=== PATIENT | male | born 1995 | race Caucasian/White ===

== ENCOUNTER 2019-05-20 08:22 | Emergency (ER) | payer OTHER ==
[2019-05-20 08:30] VITALS: BP 137/85; PULSE 89; RESP 18; TEMP 98.4
--- NOTE | 2019-05-20 08:44 | ED ---
General Adult HPI - General Chief complaint: Upper Respiratory Infection Stated complaint: Cough/sore throat Time Seen by Provider: 05/20/19 08:26 Source: patient, RN notes reviewed Mode of arrival: ambulatory Limitations: no limitations - History of Present Illness Initial comments: 24-year-old male presents to the emergency determine for chief complaint of cough. Patient has had a cough and rhinorrhea for about one week. States that he had one episode of vomiting today at work so that he needed to be evaluated. Patient denies abdominal pain. Denies fevers or chills. Denies any recent domestic or foreign travel. Denies shortness of breath or chest pain. States that he needs to note to return to work. Patient has no other complaints at t his time including shortness of breath, chest pain, abdominal pain, nausea or vomiting, headache, or visual changes. - Related Data Allergies Allergy/AdvReac Type Severity Reaction Status Date / Time No Known Allergies Allergy Verified 05/20/19 08:26 Review of Systems ROS Statement: Those systems with pertinent positive or pertinent negative responses have been documented in the HPI. ROS Other: All systems not noted in ROS Statement are negative. Past Medical History Past Medical History: No Reported History History of Any Multi-Drug Resistant Organisms: None Reported Past Surgical History: No Surgical Hx Reported Past Psychological History: No Psychological Hx Reported Smoking Status: Current every day smoker Past Alcohol Use History: Occasional Past Drug Use History: Marijuana General Exam Limitations: no limitations General appearance: alert, in no apparent distress Head exam: Present: atraumatic, normocephalic, normal inspection Eye exam: Present: normal appearance, PERRL, EOMI. Absent: scleral icterus, conjunctival injection, periorbital swelling ENT exam: Present: normal exam, normal oropharynx, mucous membranes moist, TM's normal bilaterally, normal external ear exam Neck exam: Present: normal inspection, full ROM. Absent: tenderness, meningismus, lymphadenopathy Respiratory exam: Present: normal lung sounds bilaterally. Absent: respiratory distress, wheezes, rales, rhonchi, stridor Cardiovascular Exam: Present: regular rate, normal rhythm, normal heart sounds. Absent: systolic murmur, diastolic murmur, rubs, gallop, clicks Course Vital Signs 05/20/19 08:27 Temperature 98.4 F Pulse Rate 89 Respiratory 18 Rate Blood Pressure 137/85 O2 Sat by Pulse 97 Oximetry Medical Decision Making - Medical Decision Making Vitals are stable. Patient is well-appearing. Chest x-ray shows no suspicious acute pulmonary process. Influenza B is positive. Patient has had symptoms for about one week and they are improving. Patient will follow-up with primary care in return for any worsening symptoms. - Lab Data Lab Results 05/20/19 Range/Units 08:45 Influenza Type A RNA Not Detected (Not Detectd) Influenza Type B (PCR) Detected H (Not Detectd) Disposition Clinical Impression: Influenza B Disposition: HOME SELF-CARE Condition: Good Instructions (If sedation given, give patient instructions): Influenza (ED) Additional Instructions: Please follow up with primary care in 1-2 days. Take Motrin and Tylenol for any fevers. Return for any worsening symptoms. Is patient prescribed a controlled substance at d/c from ED?: No Referrals: Noble Gates MD [REFERRING] - 1-2 days Time of Disposition: 09:27
--- NOTE | 2019-05-20 08:51 | XR ---
EXAMINATION TYPE: XR chest 2V DATE OF EXAM: 05/20/2019 COMPARISON: NONE HISTORY: Cough and congestion. TECHNIQUE: Frontal and lateral views of the chest are obtained. FINDINGS: There is no focal air space opacity, pleural effusion, or pneumothorax seen. The cardiac silhouette size is within normal limits. The osseous structures are intact. IMPRESSION: No suspicious acute pulmonary process.
== END 2019-05-20 09:45 | disposition home or self-care (01) ==
LOC: EC 08:22
DX: J10.1 Influenza due to other identified influenza virus with other respiratory manifestations (principal); F17.200 Nicotine dependence, unspecified, uncomplicated; R11.10 Vomiting, unspecified
CPT/HCPCS: 71046; 87502; 99283

== ENCOUNTER 2020-08-24 12:00 | Emergency (ER) | payer OTHER ==
[2020-08-24 12:12] VITALS: BP 132/84; PULSE 72; RESP 20; TEMP 97.9
[2020-08-24] MEDS ORDERED: ACET/COD 300 MG/30 MG STARTER PACK 6 TAB BTL PO STA (13:40)
[2020-08-24] MEDS ORDERED: KETOROLAC 15 MG/ML 1 ML VIAL IM STA (13:40)
--- NOTE | 2020-08-24 13:45 | ED ---
General Adult HPI - General Chief complaint: Abdominal Pain Stated complaint: back pain Time Seen by Provider: 08/24/20 13:26 Source: patient Mode of arrival: ambulatory Limitations: no limitations - History of Present Illness Initial comments: Patient is a 25-year-old male presenting to the emergency Department with complaints of right sided back pain that started yesterday when he was working on cars. Patient states he was doing a lot of twisting underneath a car and felt tightness in his right mid to lower back. He states when he woke up this m orning the tightness is persisting, he feels a little bit worse and feels like it's wrapping around to his right side. States pain with deep inhalation, pain with twisting and full extension of his trunk. He denies any abdominal pain, no fevers or chills, no difficulty with urination. Denies history of kidney stones. He states he has been trying ibuprofen yesterday and today without improvement in his pain. He denies history of any back surgeries or back injuries. He has no further complaints at this time. - Related Data Previous Rx's Medication Instructions Recorded Cyclobenzaprine [Flexeril] 5 mg PO BID #10 tablet 08/24/20 Allergies Allergy/AdvReac Type Severity Reaction Status Date / Time No Known Allergies Allergy Verified 08/24/20 12:12 Review of Systems ROS Statement: Those systems with pertinent positive or pertinent negative responses have been documented in the HPI. ROS Other: All systems not noted in ROS Statement are negative. Past Medical History Past Medical History: No Reported History History of Any Multi-Drug Resistant Organisms: None Reported Past Surgical History: No Surgical Hx Reported Past Psychological History: No Psychological Hx Reported Smoking Status: Current every day smoker Past Alcohol Use History: Occasional Past Drug Use History: Marijuana General Exam - General Exam Comments Initial Comments: GENERAL: Patient is well-developed and well-nourished. Patient is nontoxic and in no acute distress. HEAD: Atraumatic, normocephalic. EYES: Pupils equal round and reactive to light, extraocular movements intact, sclera anicteric, conjunctiva are normal. Eyelids were unremarkable. ENT: Nares patent, oropharynx clear without exudates. Moist mucous membranes. NECK: Normal range of motion, supple without lymphadenopathy or JVD. LUNGS: Unlabored respirations. Breath sounds clear to auscultation bilaterally and equal. No wheezes rales or rhonchi. HEART: Regular rate and rhythm without murmurs, rubs or gallops. ABDOMEN: Soft, nontender, normoactive bowel sounds. No guarding, no rebound. No masses appreciated. : Deferred MUSCULOSKELETAL: Normal extremities with adequate strength and normal range of motion, no pitting or edema. No clubbing or cyanosis. Pain with palpation of the right thoracic paraspinals, pain with deep elevation. NEUROLOGICAL: Patient is alert and oriented x 3. Motor and sensory are also intact. Cranial nerves II through XII grossly intact. Symmetrical smile. Normal speech, normal gait. PSYCH: Normal mood, normal affect. SKIN: Warm, Dry, normal turgor, no rashes or lesions noted. Limitations: no limitations Course Vital Signs 08/24/20 12:08 Temperature 97.9 F Pulse Rate 72 Respiratory 20 Rate Blood Pressure 132/84 O2 Sat by Pulse 100 Oximetry Medical Decision Making - Medical Decision Making Patient is a 25-year-old male here for thoracic right back pain after twisting yesterday. His exam is consistent with muscle skeletal injury, muscle spasms. No acute neuro deficits. Patient will be given Toradol, Tylenol 3 starter pack here in the ER and sent home with a prescription for a muscle relaxer. I also recommend continuing with ibuprofen at home, heat to the area and gentle stretching. He can follow-up with his primary care physician. He is in agreement this plan of care and is stable for discharge. Disposition Clinical Impression: Spasm of thoracic back muscle Disposition: HOME SELF-CARE Condition: Stable Instructions (If sedation given, give patient instructions): Acute Low Back Pain (ED) Additional Instructions: Please return to the Emergency Department if symptoms worsen or any other concerns. Continue to take ibuprofen for discomfort, may take Tylenol threes for more severe pain. Continue with heat to the area and stretching. Follow-up with PCP. Prescriptions: Cyclobenzaprine [Flexeril] 5 mg PO BID #10 tablet Is patient prescribed a controlled substance at d/c from ED?: No Referrals: None,Stated [Primary Care Provider] - 1-2 days Time of Disposition: 13:45
== END 2020-08-24 14:05 | disposition home or self-care (01) ==
LOC: EC 12:00
DX: M62.830 Muscle spasm of back (principal); F17.200 Nicotine dependence, unspecified, uncomplicated; F12.90 Cannabis use, unspecified, uncomplicated
CPT/HCPCS: 96372; 99283

== ENCOUNTER 2020-12-18 21:29 | Emergency (ER) | payer OTHER ==
[2020-12-18 21:46] VITALS: BP 120/71; PULSE 78; RESP 18; TEMP 98.4
[2020-12-18] MEDS ORDERED: ACET/COD 300 MG/30 MG STARTER PACK 6 TAB BTL PO STA (22:53)
[2020-12-18] MEDS ORDERED: PENICILLIN VK 500MG STARTER 4 TAB BTL PO STA (22:53)
--- NOTE | 2020-12-18 22:57 | ED ---
General Adult HPI - General Chief complaint: Dental/Oral Stated complaint: Dental Pain Time Seen by Provider: 12/18/20 22:13 Source: patient, RN notes reviewed Mode of arrival: ambulatory Limitations: no limitations - History of Present Illness Initial comments: 25-year-old male presents to the emergency room for a chief of left-sided dental pain. Patient states he's had a chipped tooth for months. States he sometimes gets infections in this. States he did call a dentist to make an appointment but they told him it would be months so he has never made one. Patient denies any swelling of the lips tongue or throat. Denies any sublingual edema. Patient did try Motrin for pain.Patient has no other complaints at this time including shortness of breath, chest pain, abdominal pain, nausea or vomiting, headache, or visual changes. - Related Data Previous Rx's Medication Instructions Recorded Cyclobenzaprine [Flexeril] 5 mg PO BID #10 tablet 08/24/20 Ibuprofen [Motrin] 600 mg PO Q8HR PRN #20 tab 12/18/20 Penicillin V Potassium [Pen Vee K] 500 mg PO Q6H 10 Days #40 tablet 12/18/20 Allergies Allergy/AdvReac Type Severity Reaction Status Date / Time No Known Allergies Allergy Verified 12/18/20 21:45 Review of Systems ROS Statement: Those systems with pertinent positive or pertinent negative responses have been documented in the HPI. ROS Other: All systems not noted in ROS Statement are negative. Past Medical History Past Medical History: No Reported History History of Any Multi-Drug Resistant Organisms: None Reported Past Surgical History: No Surgical Hx Reported Past Psychological History: No Psychological Hx Reported Smoking Status: Current every day smoker Past Alcohol Use History: Occasional Past Drug Use History: Marijuana General Exam Limitations: no limitations General appearance: alert, in no apparent distress Head exam: Present: atraumatic Eye exam: Present: normal appearance, PERRL, EOMI. Absent: scleral icterus, conjunctival injection ENT exam: Absent: normal oropharynx (Fractured tooth 16. No sublingual edema. No abscess along the gumline.) Expanded Teeth exam: Present: fractured tooth # (16) Course Vital Signs 12/18/20 21:45 Temperature 98.4 F Pulse Rate 78 Respiratory 18 Rate Blood Pressure 120/71 O2 Sat by Pulse 100 Oximetry Medical Decision Making - Medical Decision Making Vitals are stable. No external signs of edema. No sublingual edema. No abscess. He does have a fractured tooth 16. Given sudden onset pain we will start patient on antibiotics. I did recommend he call and make early spring with his dentist. Even if it is months out he does need this evaluated. Patient is agreeable to this. He will return for any worsening symptoms. Disposition Clinical Impression: Pain, dental, Fractured tooth Disposition: HOME SELF-CARE Condition: Good Instructions (If sedation given, give patient instructions): Toothache (ED) Additional Instructions: Please take medications as directed. Do not drive while taking Tylenol 3. Follow-up with dentist at next available appointment. Return for any worsening symptoms. [facility] [place] [id number] [facility] [id number] (existing clients only) New clients: [phone] 1st consult: $50 (includes XRs) Usually 30% less than private dentist for visits after. [employer] [facility] [employer] Have to pay $50 for Xrays and rest is covered [phone] Prescriptions: Ibuprofen [Motrin] 600 mg PO Q8HR PRN #20 tab PRN Reason: Pain Penicillin V Potassium [Pen Vee K] 500 mg PO Q6H 10 Days #40 tablet Is patient prescribed a controlled substance at d/c from ED?: No Referrals: Noble Gates MD [REFERRING] - 1-2 days Time of Disposition: 22:56
== END 2020-12-18 23:31 | disposition home or self-care (01) ==
LOC: EC 21:29
DX: S02.5XXA Fracture of tooth (traumatic), initial encounter for closed fracture (principal); F17.200 Nicotine dependence, unspecified, uncomplicated; F12.90 Cannabis use, unspecified, uncomplicated; X58.XXXA Exposure to other specified factors, initial encounter
CPT/HCPCS: 99282

== ENCOUNTER → 2021-02-23 | Outpatient (CLI) | payer OTHER | END | disposition home or self-care (01) | LOC: LABWHC1 22:19 | PROVIDERS: ATTEND Emergency Medicine | DX: Z53.9 Procedure and treatment not carried out, unspecified reason (principal) ==

== ENCOUNTER → 2021-02-24 | Outpatient (CLI) | payer OTHER | END | disposition home or self-care (01) | LOC: LABWHC1 22:38 | PROVIDERS: ATTEND Emergency Medicine | DX: Z20.822 Contact with and (suspected) exposure to COVID-19 (principal) | CPT/HCPCS: 87635 ==

== ENCOUNTER → 2021-03-09 | Outpatient (CLI) | payer OTHER | END | disposition home or self-care (01) | LOC: LABWHC1 23:28 | PROVIDERS: ATTEND Emergency Medicine | DX: Z20.822 Contact with and (suspected) exposure to COVID-19 (principal) | CPT/HCPCS: 87635 ==

== ENCOUNTER → 2021-03-25 | Outpatient (CLI) | payer OTHER | END | disposition home or self-care (01) | LOC: LABWHC1 13:59 | PROVIDERS: ATTEND Emergency Medicine | DX: Z20.822 Contact with and (suspected) exposure to COVID-19 (principal) | CPT/HCPCS: 87635 ==

== ENCOUNTER → 2021-03-26 | Outpatient (CLI) | payer OTHER | END | disposition home or self-care (01) | LOC: LABWHC1 19:56 | PROVIDERS: ATTEND Emergency Medicine | DX: U07.1 COVID-19 (principal) | CPT/HCPCS: 87635 ==

== ENCOUNTER 2021-04-13 20:17 | Emergency (ER) | payer OTHER ==
[2021-04-13 20:47] VITALS: TEMP 98.6
[2021-04-13 22:54] LABS: Basophils % (A) 1 %; Eosinophils # (A) 0.2 k/uL (0-0.7); Eosinophils % (A) 2 %; HCT 51.2 % (39.0-53.0); HGB 17.3 gm/dL (13.0-17.5); Lymphocytes # (A) 1.7 k/uL (1.0-4.8); Lymphocytes % (A) 24 %; MCH 29.9 pg (25.0-35.0); MCHC 33.8 g/dL (31.0-37.0); MCV 88.5 fL (80.0-100.0); Mean Platelet Volume 8.4; Monocytes # (A) 0.5 k/uL (0-1.0); Monocytes % (A) 7 %; Neutrophils # (A) 4.4 k/uL (1.3-7.7); Neutrophils % (A) 63 %; Platelet Count 153 k/uL (150-450); RBC 5.78 m/uL (4.30-5.90); RDW 13.1 % (11.5-15.5)
[2021-04-13 23:09] LABS: ALT 58 U/L (4-49); AST 55 U/L (17-59); African American GFR (CKD) >90 (>60 ml/min/1.73 sqM); Albumin 4.6 g/dL (3.5-5.0); Alkaline Phosphatase 46 U/L (38-126); Amylase 51 U/L (30-110); Anion Gap 10 mmol/L; Blood Urea Nitrogen 11 mg/dL (9-20); Calcium 9.3 mg/dL (8.4-10.2); Carbon Dioxide 28 mmol/L (22-30); Chloride 104 mmol/L (98-107); Glucose 75 mg/dL (74-99); Lipase 63 U/L (23-300); Non-African American GFR(CKD) >90 (>60 ml/min/1.73 sqM); Potassium 4.2 mmol/L (3.5-5.1); Sodium 142 mmol/L (137-145); Total Bilirubin 1.3 mg/dL (0.2-1.3); Total Protein 7.8 g/dL (6.3-8.2)
[2021-04-13] MEDS ORDERED: SODIUM CHLORIDE 0.9% 1,000 ML IV ONE (23:53)
[2021-04-13] MEDS ORDERED: DICYCLOMINE 10 MG/ML 2 ML AMP IM STA (23:53)
[2021-04-14 01:36] LABS: Appearance,Urine Clear (Clear); Bilirubin,Urine Negative (Negative); Blood,Urine Negative (Negative); Color,Urine Yellow; Glucose,Urine (UA) Negative (Negative); Ketones,Urine Negative (Negative); Leukocyte Esterase,Urine Negative (Negative); Nitrite,Urine Negative (Negative); PH, Urine 5.5 (5.0-8.0); Protein,Urine Trace (Negative); Specific Gravity,Urine 1.027 (1.001-1.035)
--- NOTE | 2021-04-14 01:37 | ED ---
Abdominal Pain HPI - General Chief Complaint: Abdominal Pain Stated Complaint: Abd pain,Diarrhea Time Seen by Provider: 04/13/21 23:25 Source: patient Mode of arrival: ambulatory - History of Present Illness Initial Comments: 26 year-old male patient presents to the emergency department for evaluation of abdominal pain and diarrhea. Patient states symptoms started about 4 days ago. Yesterday he developed pain to the abdomen. Denies black or bloody stool. Denies history of symptoms similar to this. Denies fever but states he has had sweating episodes. Reports 2 episodes of vomiting today. Was diagnosed with COVID on 03/19/21. Has been taking Pepto-Bismol and antidiarrheals without relief. Patient denies any recent rash, cough, shortness of breath, chest pain, back pain, numbness, tingling, dizziness, weakness, hematuria, dysuria, urinary urgency, urinary frequency, headache, visual changes, or any other complaints. - Related Data Previous Rx's Medication Instructions Recorded Cyclobenzaprine [Flexeril] 5 mg PO BID #10 tablet 08/24/20 Ibuprofen [Motrin] 600 mg PO Q8HR PRN #20 tab 12/18/20 Penicillin V Potassium [Pen Vee K] 500 mg PO Q6H 10 Days #40 tablet 12/18/20 Dicyclomine [Bentyl] 20 mg PO QID #12 tablet 04/14/21 Allergies Allergy/AdvReac Type Severity Reaction Status Date / Time No Known Allergies Allergy Verified 04/13/21 20:47 Review of Systems ROS Statement: Those systems with pertinent positive or pertinent negative responses have been documented in the HPI. ROS Other: All systems not noted in ROS Statement are negative. Past Medical History Past Medical History: No Reported History History of Any Multi-Drug Resistant Organisms: None Reported Past Surgical History: No Surgical Hx Reported Past Psychological History: No Psychological Hx Reported Smoking Status: Current every day smoker Past Alcohol Use History: Occasional Past Drug Use History: Marijuana General Exam General appearance: alert, in no apparent distress, other (This is a well-developed, well-nourished adult male in no acute distress.) Respiratory exam: Present: normal lung sounds bilaterally. Absent: respiratory distress, wheezes, rales, rhonchi, stridor Cardiovascular Exam: Present: regular rate, normal rhythm, normal heart sounds. Absent: systolic murmur, diastolic murmur, rubs, gallop, clicks GI/Abdominal exam: Present: soft, normal bowel sounds. Absent: distended, tenderness, guarding, rebound, rigid Neurological exam: Present: alert, oriented X3, CN II-XII intact Psychiatric exam: Present: normal affect, normal mood Skin exam: Present: warm, dry, intact, normal color. Absent: rash Course Vital Signs 04/13/21 20:44 Temperature 98.6 F Pulse Rate 79 Respiratory 19 Rate Blood Pressure 145/97 O2 Sat by Pulse 98 Oximetry Medical Decision Making - Medical Decision Making 26-year-old male patient presented to the emergency department for evaluation of abdominal cramping and diarrhea for the last 4 days. Physical examination did reveal generalized abdominal tenderness. He is afebrile normal vital signs. Labs reviewed and revealed normal white blood cell count. Urinalysis negative. He is given a dose of Bentyl here in the department. Upon reevaluation is resting comfortably in bed states his symptoms are improved. He will be discharged to follow-up with his primary care physician for recheck in 1-2 days. Return parameters were discussed in detail. He verbalizes understanding and agrees with this plan. My attending is Dr. Preaza. - Lab Data Result diagrams: 04/13/21 22:39 04/13/21 22:39 Lab Results 04/13/21 04/13/21 04/14/21 Range/Units 22:39 22:39 01:07 WBC 7.0 (3.8-10.6) k/uL RBC 5.78 (4.30-5.90) m/uL Hgb 17.3 (13.0-17.5) gm/dL Hct 51.2 (39.0-53.0) % MCV 88.5 (80.0-100.0) fL MCH 29.9 (25.0-35.0) pg MCHC 33.8 (31.0-37.0) g/dL RDW 13.1 (11.5-15.5) % Plt Count 153 (150-450) k/uL MPV 8.4 Neutrophils % 63 % Lymphocytes % 24 % Monocytes % 7 % Eosinophils % 2 % Basophils % 1 % Neutrophils # 4.4 (1.3-7.7) k/uL Lymphocytes # 1.7 (1.0-4.8) k/uL Monocytes # 0.5 (0-1.0) k/uL Eosinophils # 0.2 (0-0.7) k/uL Basophils # 0.0 (0-0.2) k/uL Sodium 142 (137-145) mmol/L Potassium 4.2 (3.5-5.1) mmol/L Chloride 104 (98-107) mmol/L Carbon Dioxide 28 (22-30) mmol/L Anion Gap 10 mmol/L BUN 11 (9-20) mg/dL Creatinine 0.98 (0.66-1.25) mg/dL Est GFR (CKD-EPI)AfAm >90 (>60 ml/min/1.73 sqM) Est GFR (CKD-EPI)NonAf >90 (>60 ml/min/1.73 sqM) Glucose 75 (74-99) mg/dL Calcium 9.3 (8.4-10.2) mg/dL Total Bilirubin 1.3 (0.2-1.3) mg/dL AST 55 (17-59) U/L ALT 58 H (4-49) U/L Alkaline Phosphatase 46 (38-126) U/L Total Protein 7.8 (6.3-8.2) g/dL Albumin 4.6 (3.5-5.0) g/dL Amylase 51 (30-110) U/L Lipase 63 (23-300) U/L Urine Color Yellow Urine Appearance Clear (Clear) Urine pH 5.5 (5.0-8.0) Ur Specific Taylor 1.027 (1.001-1.035) Urine Protein Trace H (Negative) Urine Glucose (UA) Negative (Negative) Urine Ketones Negative (Negative) Urine Blood Negative (Negative) Urine Nitrite Negative (Negative) Urine Bilirubin Negative (Negative) Urine Urobilinogen 2.0 (<2.0) mg/dL Ur Leukocyte Esterase Negative (Negative) Disposition Clinical Impression: Abdominal pain, Diarrhea Disposition: HOME SELF-CARE Condition: Good Instructions (If sedation given, give patient instructions): Gastroenteritis (ED), Acute Diarrhea (ED), Abdominal Pain (ED) Additional Instructions: Increase fluids. Take medication as directed. Follow-up through primary care physician for recheck in 1-2 days. Return for any new, worsening, or concerning symptoms. Prescriptions: Dicyclomine [Bentyl] 20 mg PO QID #12 tablet Is patient prescribed a controlled substance at d/c from ED?: No Referrals: None,Stated [Primary Care Provider] - 1-2 days Time of Disposition: 01:58
[2021-04-14 02:50] VITALS: BP 129/83; PULSE 82; RESP 16
== END 2021-04-14 02:49 | disposition home or self-care (01) ==
LOC: EC 20:17
DX: R10.84 Generalized abdominal pain (principal); R19.7 Diarrhea, unspecified; F17.200 Nicotine dependence, unspecified, uncomplicated; F12.90 Cannabis use, unspecified, uncomplicated
CPT/HCPCS: 99284; 96360; 96361; 96372; 36415; 80053; 82150; 83690; 85025; 81003; J0500

== ENCOUNTER 2021-06-29 17:53 | Emergency (ER) | payer OTHER ==
[2021-06-29 18:42] VITALS: TEMP 98.1
[2021-06-29 19:07] LABS: Basophils # (A) 0.1 k/uL (0-0.2); Basophils % (A) 1 %; Eosinophils # (A) 0.2 k/uL (0-0.7); Eosinophils % (A) 1 %; HCT 52.8 % (39.0-53.0); HGB 17.6 gm/dL (13.0-17.5); Lymphocytes # (A) 1.7 k/uL (1.0-4.8); Lymphocytes % (A) 16 %; MCH 29.9 pg (25.0-35.0); MCHC 33.3 g/dL (31.0-37.0); MCV 89.7 fL (80.0-100.0); Mean Platelet Volume 7.5; Monocytes # (A) 0.4 k/uL (0-1.0); Monocytes % (A) 4 %; Neutrophils # (A) 8.4 k/uL (1.3-7.7); Neutrophils % (A) 76 %; Platelet Count 205 k/uL (150-450); RBC 5.88 m/uL (4.30-5.90); RDW 13.1 % (11.5-15.5)
[2021-06-29 19:21] LABS: Partial Thromboplastin Time 24.4 sec (22.0-30.0); Prothrombin Time 10.7 sec (9.0-12.0)
--- NOTE | 2021-06-29 19:23 | XR ---
EXAMINATION: XR chest 2V DATE AND TIME: 06/29/2021 7:17 PM CLINICAL INDICATION: 26 F weakness Additional: Vomiting, chest discomfort TECHNIQUE: PA and lateral views COMPARISON: 05/20/19 FINDINGS: The lungs are clear. The pleural spaces are negative. The cardiac silhouette is not enlarged. The remainder of the mediastinal silhouette is unremarkable. The skeletal structures and soft tissues are negative for acute findings. IMPRESSION: NO ACUTE PROCESS.
[2021-06-29 19:41] LABS: ALT 25 U/L (4-49); AST 30 U/L (17-59); African American GFR (CKD) >90 (>60 ml/min/1.73 sqM); Albumin 4.8 g/dL (3.5-5.0); Alkaline Phosphatase 52 U/L (38-126); Anion Gap 9 mmol/L; Blood Urea Nitrogen 9 mg/dL (9-20); Calcium 9.6 mg/dL (8.4-10.2); Carbon Dioxide 29 mmol/L (22-30); Chloride 101 mmol/L (98-107); Glucose 84 mg/dL (74-99); Non-African American GFR(CKD) >90 (>60 ml/min/1.73 sqM); Potassium 4.6 mmol/L (3.5-5.1); Sodium 139 mmol/L (137-145); Total Bilirubin 1.5 mg/dL (0.2-1.3); Total Protein 8.3 g/dL (6.3-8.2)
[2021-06-29 19:48] LABS: Appearance,Urine Clear (Clear); Bilirubin,Urine Negative (Negative); Blood,Urine Negative (Negative); Color,Urine Yellow; Glucose,Urine (UA) Negative (Negative); Ketones,Urine Negative (Negative); Leukocyte Esterase,Urine Negative (Negative); Nitrite,Urine Negative (Negative); PH, Urine 5.5 (5.0-8.0); Protein,Urine Negative (Negative); Specific Gravity,Urine 1.014 (1.001-1.035); Urobilinogen,Urine <2.0 mg/dL (<2.0)
--- NOTE | 2021-06-29 20:34 | ED ---
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 Patient states that yesterday he started developing nausea, vomiting, cough, and coughing up blood. Patient states is a very small amount. Patient has had no known fever but does have some pain in the left lower quadrant area. Patient a few episodes of diarrhea yesterday and several episodes of vomiting. No hematemesis or coffee-ground emesis. No hematochezia or melena. The patient had COVID-19 in March. No headache, no fever or chills, no changes in vision or hearing, no sore throat or difficulty with speech, no neck pain, no chest pain or shortness of breath, no bowel movements, no numbness or tingling, no extremity pain, no skin rashes or lesions. - Related Data Previous Rx's Medication Instructions Recorded Cyclobenzaprine [Flexeril] 5 mg PO BID #10 tablet 08/24/20 Ibuprofen [Motrin] 600 mg PO Q8HR PRN #20 tab 12/18/20 Penicillin V Potassium [Pen Vee K] 500 mg PO Q6H 10 Days #40 tablet 12/18/20 Dicyclomine [Bentyl] 20 mg PO QID #12 tablet 04/14/21 Dicyclomine [Bentyl] 20 mg PO QID #24 tablet 06/29/21 Famotidine [Pepcid] 20 mg PO BID #30 tablet 06/29/21 Ondansetron [Zofran ODT] 4 mg PO Q8HR #20 tab 06/29/21 Allergies Allergy/AdvReac Type Severity Reaction Status Date / Time No Known Allergies Allergy Verified 06/29/21 18:42 Review of Systems ROS Statement: Those systems with pertinent positive or pertinent negative responses have been documented in the HPI. ROS Other: All systems not noted in ROS Statement are negative. Past Medical History Past Medical History: No Reported History Additional Past Medical History / Comment(s): covid, weaknened heart muscle. History of Any Multi-Drug Resistant Organisms: None Reported Past Surgical History: No Surgical Hx Reported Past Psychological History: No Psychological Hx Reported Smoking Status: Current every day smoker Past Alcohol Use History: Occasional Past Drug Use History: Marijuana General Exam Limitations: no limitations General appearance: alert, in no apparent distress Head exam: Present: atraumatic, normocephalic, normal inspection Eye exam: Present: normal appearance, PERRL, EOMI. Absent: scleral icterus, con junctival injection, periorbital swelling ENT exam: Present: normal exam, normal oropharynx, mucous membranes moist, TM's normal bilaterally, normal external ear exam. Absent: mucous membranes dry Neck exam: Present: normal inspection. Absent: tenderness, meningismus, lymphadenopathy Respiratory exam: Present: normal lung sounds bilaterally. Absent: respiratory distress, wheezes, rales, rhonchi, stridor Cardiovascular Exam: Present: regular rate, normal rhythm, normal heart sounds. Absent: systolic murmur, diastolic murmur, rubs, gallop, clicks GI/Abdominal exam: Present: soft, tenderness (Left lower quadrant), guarding, normal bowel sounds. Absent: distended, rebound, rigid Extremities exam: Present: normal inspection, full ROM, normal capillary refill. Absent: tenderness, pedal edema, joint swelling, calf tenderness Back exam: Present: normal inspection Neurological exam: Present: alert, oriented X3, CN II-XII intact Psychiatric exam: Present: normal affect, normal mood Skin exam: Present: warm, dry, intact, normal color. Absent: rash Course Vital Signs 06/29/21 18:38 Temperature 98.1 F Pulse Rate 60 Respiratory 20 Rate Blood Pressure 133/86 O2 Sat by Pulse 97 Oximetry - Reevaluation(s) Reevaluation #1: 06/29/21 21:57 Medical record is reviewed Patient complains of some cramping abdominal pain. Patient is informed of results and questions answered Patient in no distress Medical Decision Making - Medical Decision Making Patient presents with mixed picture. Patient has symptoms related to viral syndrome to include a cough, fatigue, diarrhea, and nausea and vomiting. However the patient does have left lower quadrant tenderness on exam. This does raise a suspicion of intra-abdominal pathology such as diverticulitis. I'm going to obtain a computed tomography scan. Patient's blood cell count was minimally elevated. Suspect the patient's hemoptysis is related to bronchitis. Patient has no respiratory distress. Patient is perc 0. Patient's workup here most consistent with a viral etiology. Likely viral bronchitis with viral enteritis. Chest x-ray was clear. Computed tomography scan did not show any acute findings. Tested negative for influenza and COVID- 19. All findings discussed with the patient. All questions answered. Patient was told to return to the ER for any signs or symptoms worsen. Told to return immediately if any other problems arise. All questions answered. Treatment plan discussed. Patient in agreement Every effort has been made to ensure accuracy of this dictation. However, due to the limitations of electronic medical records and dictation devices, errors in charting still occur. Supervising physician is Dr. Galdamez - Lab Data Result diagrams: 06/29/21 18:52 06/29/21 18:52 Lab Results 06/29/21 06/29/21 06/29/21 Range/Units 18:52 18:52 18:52 WBC 11.0 H (3.8-10.6) k/uL RBC 5.88 (4.30-5.90) m/uL Hgb 17.6 H (13.0-17.5) gm/dL Hct 52.8 (39.0-53.0) % MCV 89.7 (80.0-100.0) fL MCH 29.9 (25.0-35.0) pg MCHC 33.3 (31.0-37.0) g/dL RDW 13.1 (11.5-15.5) % Plt Count 205 (150-450) k/uL MPV 7.5 Neutrophils % 76 % Lymphocytes % 16 % Monocytes % 4 % Eosinophils % 1 % Basophils % 1 % Neutrophils # 8.4 H (1.3-7.7) k/uL Lymphocytes # 1.7 (1.0-4.8) k/uL Monocytes # 0.4 (0-1.0) k/uL Eosinophils # 0.2 (0-0.7) k/uL Basophils # 0.1 (0-0.2) k/uL PT 10.7 (9.0-12.0) sec INR 1.0 (<1.2) APTT 24.4 (22.0-30.0) sec D-Dimer <0.17 (<0.60) mg/L FEU Sodium 139 (137-145) mmol/L Potassium 4.6 (3.5-5.1) mmol/L Chloride 101 (98-107) mmol/L Carbon Dioxide 29 (22-30) mmol/L Anion Gap 9 mmol/L BUN 9 (9-20) mg/dL Creatinine 0.94 (0.66-1.25) mg/dL Est GFR (CKD-EPI)AfAm >90 (>60 ml/min/1.73 sqM) Est GFR (CKD-EPI)NonAf >90 (>60 ml/min/1.73 sqM) Glucose 84 (74-99) mg/dL Plasma Lactic Acid Jun (0.7-2.0) mmol/L Calcium 9.6 (8.4-10.2) mg/dL Total Bilirubin 1.5 H (0.2-1.3) mg/dL AST 30 (17-59) U/L ALT 25 (4-49) U/L Alkaline Phosphatase 52 (38-126) U/L Troponin I (0.000-0.034) ng/mL Total Protein 8.3 H (6.3-8.2) g/dL Albumin 4.8 (3.5-5.0) g/dL Urine Color Urine Appearance (Clear) Urine pH (5.0-8.0) Ur Specific [place] (1.001-1.035) Urine Protein (Negative) Urine Glucose (UA) (Negative) Urine Ketones (Negative) Urine Blood (Negative) Urine Nitrite (Negative) Urine Bilirubin (Negative) Urine Urobilinogen (<2.0) mg/dL Ur Leukocyte Esterase (Negative) Coronavirus (PCR) (Not Detectd) Influenza Type A RNA (Not Detectd) Influenza Type B (PCR) (Not Detectd) 06/29/21 06/29/21 06/29/21 Range/Units 18:52 18:52 19:41 WBC (3.8-10.6) k/uL RBC (4.30-5.90) m/uL Hgb (13.0-17.5) gm/dL Hct (39.0-53.0) % MCV (80.0-100.0) fL MCH (25.0-35.0) pg MCHC (31.0-37.0) g/dL RDW (11.5-15.5) % Plt Count (150-450) k/uL MPV Neutrophils % % Lymphocytes % % Monocytes % % Eosinophils % % Basophils % % Neutrophils # (1.3-7.7) k/uL Lymphocytes # (1.0-4.8) k/uL Monocytes # (0-1.0) k/uL Eosinophils # (0-0.7) k/uL Basophils # (0-0.2) k/uL PT (9.0-12.0) sec INR (<1.2) APTT (22.0-30.0) sec D-Dimer (<0.60) mg/L FEU Sodium (137-145) mmol/L Potassium (3.5-5.1) mmol/L Chloride (98-107) mmol/L Carbon Dioxide (22-30) mmol/L Anion Gap mmol/L BUN (9-20) mg/dL Creatinine (0.66-1.25) mg/dL Est GFR (CKD-EPI)AfAm (>60 ml/min/1.73 sqM) Est GFR (CKD-EPI)NonAf (>60 ml/min/1.73 sqM) Glucose (74-99) mg/dL Plasma Lactic Acid Jun 0.8 (0.7-2.0) mmol/L Calcium (8.4-10.2) mg/dL Total Bilirubin (0.2-1.3) mg/dL AST (17-59) U/L ALT (4-49) U/L Alkaline Phosphatase (38-126) U/L Troponin I <0.012 (0.000-0.034) ng/mL Total Protein (6.3-8.2) g/dL Albumin (3.5-5.0) g/dL Urine Color Yellow Urine Appearance Clear (Clear) Urine pH 5.5 (5.0-8.0) Ur Specific [place] 1.014 (1.001-1.035) Urine Protein Negative (Negative) Urine Glucose (UA) Negative (Negative) Urine Ketones Negative (Negative) Urine Blood Negative (Negative) Urine Nitrite Negative (Negative) Urine Bilirubin Negative (Negative) Urine Urobilinogen <2.0 (<2.0) mg/dL Ur Leukocyte Esterase Negative (Negative) Coronavirus (PCR) (Not Detectd) Influenza Type A RNA (Not Detectd) Influenza Type B (PCR) (Not Detectd) 06/29/21 06/29/21 Range/Units 20:21 20:21 WBC (3.8-10.6) k/uL RBC (4.30-5.90) m/uL Hgb (13.0-17.5) gm/dL Hct (39.0-53.0) % MCV (80.0-100.0) fL MCH (25.0-35.0) pg MCHC (31.0-37.0) g/dL RDW (11.5-15.5) % Plt Count (150-450) k/uL MPV Neutrophils % % Lymphocytes % % Monocytes % % Eosinophils % % Basophils % % Neutrophils # (1.3-7.7) k/uL Lymphocytes # (1.0-4.8) k/uL Monocytes # (0-1.0) k/uL Eosinophils # (0-0.7) k/uL Basophils # (0-0.2) k/uL PT (9.0-12.0) sec INR (<1.2) APTT (22.0-30.0) sec D-Dimer (<0.60) mg/L FEU Sodium (137-145) mmol/L Potassium (3.5-5.1) mmol/L Chloride (98-107) mmol/L Carbon Dioxide (22-30) mmol/L Anion Gap mmol/L BUN (9-20) mg/dL Creatinine (0.66-1.25) mg/dL Est GFR (CKD-EPI)AfAm (>60 ml/min/1.73 sqM) Est GFR (CKD-EPI)NonAf (>60 ml/min/1.73 sqM) Glucose (74-99) mg/dL Plasma Lactic Acid Jun (0.7-2.0) mmol/L Calcium (8.4-10.2) mg/dL Total Bilirubin (0.2-1.3) mg/dL AST (17-59) U/L ALT (4-49) U/L Alkaline Phosphatase (38-126) U/L Troponin I (0.000-0.034) ng/mL Total Protein (6.3-8.2) g/dL Albumin (3.5-5.0) g/dL Urine Color Urine Appearance (Clear) Urine pH (5.0-8.0) Ur Specific [place] (1.001-1.035) Urine Protein (Negative) Urine Glucose (UA) (Negative) Urine Ketones (Negative) Urine Blood (Negative) Urine Nitrite (Negative) Urine Bilirubin (Negative) Urine Urobilinogen (<2.0) mg/dL Ur Leukocyte Esterase (Negative) Coronavirus (PCR) Not Detected (Not Detectd) Influenza Type A RNA Not Detected (Not Detectd) Influenza Type B (PCR) Not Detected (Not Detectd) Disposition Clinical Impression: Acute bronchitis, viral, Viral enteritis Disposition: HOME SELF-CARE Condition: Good Additional Instructions: Clear liquid diet for 24 hours. Advance diet as tolerated thereafter. Follow-up with your regular physician as directed. Return to the ER immediately if any symptoms worsen, new symptoms arise, or any other problems develop. Prescriptions: Dicyclomine [Bentyl] 20 mg PO QID #24 tablet Famotidine [Pepcid] 20 mg PO BID #30 tablet Ondansetron [Zofran ODT] 4 mg PO Q8HR #20 tab Is patient prescribed a controlled substance at d/c from ED?: No Referrals: Yousuf Aranda [STAFF PHYSICIAN] - 07/04/21 Time of Disposition: 21:58
--- NOTE | 2021-06-29 21:36 | CT ---
EXAMINATION TYPE: CT abdomen pelvis w con DATE OF EXAM: 06/29/2021 COMPARISON: HISTORY: 26 M N/V and cough CT DLP: 1676.5 mGycm, Automated Exposure Control for Dose Reduction was Utilized. CONTRAST: CT scan of the abdomen and pelvis is performed with oral and with IV Contrast, patient injected with 100 mL of Isovue 300. FINDINGS: LUNG BASES: No significant abnormality is appreciated. LIVER/GB: No significant abnormality is appreciated. Cholelithiasis incidentally noted. PANCREAS: No significant abnormality is seen. SPLEEN: No significant abnormality is seen. ADRENALS: No significant abnormality is seen. KIDNEYS: No significant abnormality is seen. BOWEL: No significant abnormality is seen. The appendix is negative. PROSTATE/SEMINAL VESICLES: No gross abnormality seen. LYMPH NODES: No greater than 1cm abdominal or pelvic lymph nodes are appreciated. OSSEOUS STRUCTURES: No significant abnormality is seen. OTHER: No significant additional abnormality is seen. IMPRESSION: No significant acute finding is seen to account for patient's clinical symptoms.
[2021-06-29] MEDS ORDERED: KETOROLAC 15 MG/ML 1 ML VIAL IVP STA (21:56)
[2021-06-29] MEDS ORDERED: ONDANSETRON 4 MG/2 ML VIAL IVP STA (21:56)
[2021-06-29 22:15] VITALS: BP 120/73; PULSE 59; RESP 18
== END 2021-06-29 22:25 | disposition home or self-care (01) ==
LOC: EC 17:53
DX: A08.4 Viral intestinal infection, unspecified (principal); J20.8 Acute bronchitis due to other specified organisms; F17.200 Nicotine dependence, unspecified, uncomplicated; Z20.822 Contact with and (suspected) exposure to COVID-19; Z86.16 Personal history of COVID-19
CPT/HCPCS: 36415; 85379; 80053; 83605; 84484; 85025; 85610; 85730; 81003; 87502; 87635; 71046; 74177; 99285; 96374; 96375; J2405; J1885; Q9967

== ENCOUNTER 2021-08-05 12:02 | Emergency (ER) | payer OTHER ==
[2021-08-05 12:08] VITALS: BP 145/79; PULSE 99; RESP 18; TEMP 98.2
--- NOTE | 2021-08-05 12:40 | ED ---
General Adult HPI - General Chief complaint: Psychiatric Symptoms Stated complaint: EPS eval Time Seen by Provider: 08/05/21 12:10 Source: patient, RN notes reviewed, old records reviewed Mode of arrival: ambulatory Limitations: no limitations - History of Present Illness Initial comments: This is a 26-year-old male who presents emergency Department stating is a 10 year history of depression and anxiety has been yet to be diagnosed. Patient states the last month or so ever since he lost his job he has been having suicidal ideations. Patient has no specific plan per patient has made no attempt patient denies any recent drinking or any drug use at all. Patient denies any physical complaints today. Patient denies any fever chills cough patient denies any chest pain difficult breathing shortness breath. Patient denies any abdominal pain or nausea vomiting diarrhea. - Related Data Previous Rx's Medication Instructions Recorded Cyclobenzaprine [Flexeril] 5 mg PO BID #10 tablet 08/24/20 Ibuprofen [Motrin] 600 mg PO Q8HR PRN #20 tab 12/18/20 Penicillin V Potassium [Pen Vee K] 500 mg PO Q6H 10 Days #40 tablet 12/18/20 Dicyclomine [Bentyl] 20 mg PO QID #12 tablet 04/14/21 Dicyclomine [Bentyl] 20 mg PO QID #24 tablet 06/29/21 Famotidine [Pepcid] 20 mg PO BID #30 tablet 06/29/21 Ondansetron [Zofran ODT] 4 mg PO Q8HR #20 tab 06/29/21 Allergies Allergy/AdvReac Type Severity Reaction Status Date / Time No Known Allergies Allergy Verified 08/05/21 12:05 Review of Systems ROS Statement: Those systems with pertinent positive or pertinent negative responses have been documented in the HPI. ROS Other: All systems not noted in ROS Statement are negative. Past Medical History Past Medical History: No Reported History Additional Past Medical History / Comment(s): covid, weaknened heart muscle. History of Any Multi-Drug Resistant Organisms: None Reported Past Surgical History: No Surgical Hx Reported Past Psychological History: No Psychological Hx Reported Smoking Status: Current every day smoker Past Alcohol Use History: Occasional Past Drug Use History: Marijuana General Exam - General Exam Comments Initial Comments: GENERAL: Patient is well-developed and well-nourished. Patient is nontoxic and well- hydrated and is in no acute distress. ENT: Neck is soft and supple. No significant lymphadenopathy is noted. Oropharynx is clear. Moist mucous membranes. Neck has full range of motion without eliciting any pain. EYES: The sclera were anicteric and conjunctiva were pink and moist. Extraocular movements were intact and pupils were equal round and reactive to light. Eyelids were unremarkable. PULMONARY: Unlabored respirations. Good breath sounds bilaterally. No audible rales rhonchi or wheezing was noted. CARDIOVASCULAR: There is a regular rate and rhythm without any murmurs gallops or rubs. ABDOMEN: Soft and nontender with normal bowel sounds. SKIN: Skin is clear with no lesions or rashes and otherwise unremarkable. NEUROLOGIC: Patient is alert and oriented x3. Cranial nerves II through XII are grossly intact. Motor and sensory are also intact. Normal speech, volume and content. Symmetrical smile. MUSCULOSKELETAL: Normal extremities with adequate strength and full range of motion. LYMPHATICS: No significant lymphadenopathy is noted PSYCHIATRIC: Patient states he is depressed and has had suicidal thoughts. Limitations: no limitations Course Vital Signs 08/05/21 12:05 Temperature 98.2 F Pulse Rate 99 Respiratory 18 Rate Blood Pressure 145/79 O2 Sat by Pulse 99 Oximetry Medical Decision Making - Medical Decision Making EPS evaluated the patient and hooked him up with outpatient follow-up he was in agreement. Patient was in agreement that he is safe until he followed up. Disposition Clinical Impression: Depression, Suicidal ideation Disposition: HOME SELF-CARE Condition: Good Is patient prescribed a controlled substance at d/c from ED?: No Referrals: None,Stated [Primary Care Provider] - 1-2 days Time of Disposition: 14:28
== END 2021-08-05 14:38 | disposition home or self-care (01) ==
LOC: EC 12:02
DX: F32.9 Major depressive disorder, single episode, unspecified (principal); R45.851 Suicidal ideations; F17.200 Nicotine dependence, unspecified, uncomplicated
CPT/HCPCS: 99284

== ENCOUNTER 2021-11-23 23:07 | Emergency (ER) | payer OTHER ==
[2021-11-23 23:48] VITALS: BP 151/87; PULSE 98; RESP 20; TEMP 98.8
--- NOTE | 2021-11-24 00:44 | XR ---
EXAMINATION TYPE: XR chest 2V DATE OF EXAM: 11/24/2021 COMPARISON: 06/29/2021 HISTORY: Difficulty breathing TECHNIQUE: 2 view FINDINGS: Heart and mediastinum are normal. Lungs are clear. Diaphragm is normal. Bony thorax is inta ct. IMPRESSION: Normal chest. No change.
[2021-11-24] MEDS ORDERED: methylPREDNISolone SOD SUCCI 125 MG/2 ML VIAL IM ONE (01:25)
[2021-11-24] MEDS ORDERED: ALBUTEROL HFA INHALER INHALATION STA (01:25)
--- NOTE | 2021-11-24 01:30 | ED ---
General Adult HPI - General Chief complaint: Shortness of Breath Stated complaint: SOB Time Seen by Provider: 11/24/21 00:49 Source: patient Mode of arrival: ambulatory Limitations: no limitations - History of Present Illness Initial comments: Patient is a 26-year-old female presenting with chief complaint of shortness of breath. Patient admits to cough for the last 2-3 days. Patient states he feels like he is working harder to breathe. Patient admits to smoking. Cough is dry. Denies chest pain. Denies fever, chills, nausea, vomiting, abdominal pain, neck pain or stiffness, sore throat, ear pain, sinus pain, hematochezia, melena, dysuria, hematuria, urgency, frequency. - Related Data Previous Rx's Medication Instructions Recorded Cyclobenzaprine [Flexeril] 5 mg PO BID #10 tablet 08/24/20 Ibuprofen [Motrin] 600 mg PO Q8HR PRN #20 tab 12/18/20 Penicillin V Potassium [Pen Vee K] 500 mg PO Q6H 10 Days #40 tablet 12/18/20 Dicyclomine [Bentyl] 20 mg PO QID #12 tablet 04/14/21 Dicyclomine [Bentyl] 20 mg PO QID #24 tablet 06/29/21 Famotidine [Pepcid] 20 mg PO BID #30 tablet 06/29/21 Ondansetron [Zofran ODT] 4 mg PO Q8HR #20 tab 06/29/21 Albuterol Inhaler [Ventolin Hfa 1 - 2 puff INHALATION Q4-6H PRN #1 11/24/21 Inhaler] unit methylPREDNISolone Dose Pack 4 mg PO DIRECTED #1 packet 11/24/21 [Medrol Dose Pack] Allergies Allergy/AdvReac Type Severity Reaction Status Date / Time No Known Allergies Allergy Verified 11/23/21 23:48 Review of Systems ROS Statement: Those systems with pertinent positive or pertinent negative responses have been documented in the HPI. ROS Other: All systems not noted in ROS Statement are negative. Past Medical History Past Medical History: No Reported History Additional Past Medical History / Comment(s): covid, weaknened heart muscle. History of Any Multi-Drug Resistant Organisms: None Reported Past Surgical History: No Surgical Hx Reported Past Psychological History: No Psychological Hx Reported Smoking Status: Current every day smoker Past Alcohol Use History: Occasional Past Drug Use History: Marijuana General Exam Limitations: no limitations General appearance: alert, in no apparent distress Head exam: Present: atraumatic, normocephalic, normal inspection Eye exam: Present: normal appearance, PERRL, EOMI. Absent: scleral icterus, conjunctival injection, periorbital swelling Neck exam: Present: normal inspection Respiratory exam: Present: wheezes. Absent: rales, rhonchi, stridor Cardiovascular Exam: Present: regular rate, normal rhythm, normal heart sounds. Absent: systolic murmur, diastolic murmur, rubs, gallop, clicks Neurological exam: Present: alert, oriented X3, CN II-XII intact Psychiatric exam: Present: normal affect, normal mood Skin exam: Present: warm, dry, intact, normal color. Absent: rash Course Vital Signs 11/23/21 23:45 Temperature 98.8 F Pulse Rate 98 Respiratory 20 Rate Blood Pressure 151/87 O2 Sat by Pulse 97 Oximetry Medical Decision Making - Medical Decision Making Patient is a 26-year-old male presenting with URI-like symptoms. Patient has had a cough and some difficulty breathing for the last 2-3 days. On examination there are diffuse wheezes heard throughout the lung moore. Patient is given steroids and albuterol. Patient is sent home with Medrol Dosepak and prescription for albuterol inhaler. Educated on supportive treatment. Patient is negative for Covid, chest x-ray shows no acute process. Follow-up with PCP. Report back to ER with any new or worsening symptoms. Discussed return parameters and answered all questions. Patient conveyed verbal understanding and agreed to the plan. I discussed this case in detail with my attending Dr. Russell - Lab Data Lab Results 11/23/21 11/23/21 Range/Units 23:52 23:52 Coronavirus (PCR) Not Detected (Not Detectd) Influenza Type A RNA Not Detected (Not Detectd) Influenza Type B (PCR) Not Detected (Not Detectd) Disposition Clinical Impression: Cough, Wheezing Disposition: HOME SELF-CARE Condition: Good Instructions (If sedation given, give patient instructions): Bronchospasm (ED) Additional Instructions: Follow-up with PCP. Report back to ER with any new or worsening symptoms. Take medication as prescribed. Prescriptions: methylPREDNISolone Dose Pack [Medrol Dose Pack] 4 mg PO DIRECTED #1 packet Albuterol Inhaler [Ventolin Hfa Inhaler] 1 - 2 puff INHALATION Q4-6H PRN #1 unit PRN Reason: Shortness Of Breath Is patient prescribed a controlled substance at d/c from ED?: No Referrals: None,Stated [Primary Care Provider] - 1-2 days Time of Disposition: 01:30
== END 2021-11-24 02:01 | disposition home or self-care (01) ==
LOC: EC 23:07
DX: R06.2 Wheezing (principal); R05.9 Cough, unspecified; R06.02 Shortness of breath; F17.200 Nicotine dependence, unspecified, uncomplicated; Z20.822 Contact with and (suspected) exposure to COVID-19
CPT/HCPCS: 99284 ×2; 96372; 94640; 87502; 87635; 71046; J2930

== ENCOUNTER 2021-12-27 08:17 | Emergency (ER) | payer OTHER ==
[2021-12-27] MEDS ORDERED: SODIUM CHLORIDE 0.9% 1,000 ML IV STA (08:36)
[2021-12-27] MEDS ORDERED: ONDANSETRON 4 MG/2 ML VIAL IVP STA (08:36)
[2021-12-27] MEDS ORDERED: PANTOPRAZOLE 40 MG/10 ML VIAL IVP STA (08:36)
[2021-12-27] MEDS ORDERED: MORPHINE SULFATE 4 MG/ML SYRINGE IV STA (08:36)
--- NOTE | 2021-12-27 08:41 | ED ---
General Adult HPI - General Chief complaint: Abdominal Pain Stated complaint: back pain, abd pain Time Seen by Provider: 12/27/21 08:25 Source: patient, RN notes reviewed, old records reviewed Mode of arrival: ambulatory Limitations: no limitations - History of Present Illness Initial comments: Patient is a 26-year-old male with past medical history that is relatively unremarkable who presents emergency Department complaining of abdominal pain, back pain. Abdominal pain has been ongoing for 2 months. States has been more persistent over the last few days. Has interrupted sleep which is why presents for evaluation. Endorses intermittent nausea. Endorses intermittent emesis as well, that is nonbilious and nonbloody. Denies any change in bowel movements. Denies constipation. Denies any fevers or chills. Discussed the pain as a achy, sharp pain in the right upper quadrant of his abdomen. Also has an associated back pain directly behind his abdominal pain. Has no known gallbladder issues but does have family members who recommended to be evaluated for possible gallbladder issue. No known palliative or provocative factors. States it usually comes and goes on its own. Currently has the pain. wanted to be evaluated. Denies any other associated symptoms including chest pain, shortness breath, fevers, chills, cough. No known sick contacts. - Related Data Home Medications Medication Instructions Recorded Confirmed Acetaminophen Tab [Tylenol Tab] 1,000 mg PO Q6H PRN 12/27/21 12/27/21 Albuterol Inhaler [Ventolin Hfa 1 - 2 puff INHALATION RT-Q4H PRN 12/27/21 12/27/21 Inhaler] Dicyclomine [Bentyl] 20 mg PO QID PRN 12/27/21 12/27/21 Previous Rx's Medication Instructions Recorded Famotidine 20 mg PO DAILY #10 tab 12/27/21 Ondansetron Odt [Zofran Odt] 4 mg PO Q8HR PRN 2 Days #6 tab 12/27/21 Allergies Allergy/AdvReac Type Severity Reaction Status Date / Time No Known Allergies Allergy Verified 12/27/21 08:28 Review of Systems ROS Statement: Those systems with pertinent positive or pertinent negative responses have been documented in the HPI. Review of Systems: CONST: Denies fever EYES: Denies blurry vision ENT: Denies nasal congestion C/V: Denies Chest pain RESP: Denies shortness of breath GI: Endorses abdominal pain : Denies dysuria SKIN: Denies rash. MSK: Denies joint pain. NEURO: Denies headache ROS Other: All systems not noted in ROS Statement are negative. Past Medical History Past Medical History: No Reported History Additional Past Medical History / Comment(s): covid, weaknened heart muscle. History of Any Multi-Drug Resistant Organisms: None Reported Past Surgical History: No Surgical Hx Reported Past Psychological History: No Psychological Hx Reported Smoking Status: Current every day smoker Past Alcohol Use History: Occasional Past Drug Use History: Marijuana General Exam - General Exam Comments Initial Comments: General: Appears in no acute distress. HEAD: Normal with no signs of head trauma. EYES: PERRLA, EOMI, conjunctiva normal, no discharge. ENT: Hearing grossly intact, normal oropharynx. RESPIRATORY: Clear breath sounds bilaterally. No wheezes, rales, or rhonchi. C/V: Regular rate and rhythm. S1 and S2 auscultated, no edema, peripheral pulses 2+ and intact throughout ABD: Abdomen soft, nondistended. Tender to palpation in the right upper quadrant, that radiates around the right-sided ribs towards the back. McBurney's point negative. Chung sign negative. No guarding. No peritoneal signs. No rebound tenderness. EXT: Normal range of motion, no obvious deformity. No midline thoracic or lumbar spine tenderness to palpation. SKIN: No rashes or lesions observed on exposed skin. NEURO: Alert and oriented 4. No focal deficits. Limitations: no limitations Course Vital Signs 12/27/21 12/27/21 08:23 11:34 Temperature 96.9 F L 97.7 F Pulse Rate 79 52 L Respiratory 20 18 Rate Blood Pressure 125/80 120/72 O2 Sat by Pulse 99 96 Oximetry Medical Decision Making - Medical Decision Making Based on the patient's presentation and physical exam, I'm concerned for acute intra-abdominal pathology for his current symptoms. Hepatobiliary etiology is highly suspected. We will obtain abdominal laboratory studies as well as right upper quadrant ultrasound and x-ray. He will be symptomatically treated with IV fluids, antiemetics, analgesia. Patient was in agreement this plan. Vital signs within acceptable limits. Laboratory studies are remarkable for normal hepatobiliary function. No signs of infection. The gallbladder ultrasound reveals cholelithiasis without signs of cholecystitis. On reevaluation, patient is feeling improved. We discussed his results. He expresses understanding that he has gallstones but no emergent reason for cholecystectomy at this time. I did recommend following up outpatient with surgery for evaluation for nonemergent cholecystectomy. Strict return precautions were discussed. He was in agreement with this plan. He is tolerating oral intake. He is likely experiencing biliary colic. I will provide the patient with a prescription for famotidine, Zofran ODT. I instructed the patient to follow up with their PCP in the next 1-3 days. I provided contact information for follow up with general surgery. I explained that the patient should return to the emergency department if they experience any worsening symptoms. Strict return precautions were discussed with the patient. The patient expressed understanding of these instructions. I answered all questions that the patient had. The patient was discharged home in good condition with their prescriptions and follow up information. - Lab Data Result diagrams: 12/27/21 08:52 12/27/21 08:52 Lab Results 12/27/21 12/27/21 12/27/21 Range/Units 08:52 08:52 08:52 WBC 9.8 (3.8-10.6) k/uL RBC 5.60 (4.30-5.90) m/uL Hgb 16.6 (13.0-17.5) gm/dL Hct 49.0 (39.0-53.0) % MCV 87.4 (80.0-100.0) fL MCH 29.6 (25.0-35.0) pg MCHC 33.9 (31.0-37.0) g/dL RDW 13.1 (11.5-15.5) % Plt Count 164 (150-450) k/uL MPV 9.2 Neutrophils % 63 % Lymphocytes % 24 % Monocytes % 5 % Eosinophils % 5 % Basophils % 1 % Neutrophils # 6.2 (1.3-7.7) k/uL Lymphocytes # 2.4 (1.0-4.8) k/uL Monocytes # 0.5 (0-1.0) k/uL Eosinophils # 0.5 (0-0.7) k/uL Basophils # 0.1 (0-0.2) k/uL PT 10.4 (9.0-12.0) sec INR 1.0 (<1.2) APTT 24.4 (22.0-30.0) sec Sodium (137-145) mmol/L Potassium (3.5-5.1) mmol/L Chloride (98-107) mmol/L Carbon Dioxide (22-30) mmol/L Anion Gap mmol/L BUN (9-20) mg/dL Creatinine (0.66-1.25) mg/dL Est GFR (CKD-EPI)AfAm (>60 ml/min/1.73 sqM) Est GFR (CKD-EPI)NonAf (>60 ml/min/1.73 sqM) Glucose (74-99) mg/dL Calcium (8.4-10.2) mg/dL Total Bilirubin (0.2-1.3) mg/dL AST (17-59) U/L ALT (4-49) U/L Alkaline Phosphatase (38-126) U/L Total Protein (6.3-8.2) g/dL Albumin (3.5-5.0) g/dL Amylase (30-110) U/L Lipase (23-300) U/L Urine Color Yellow Urine Appearance Clear (Clear) Urine pH 5.5 (5.0-8.0) Ur Specific [place] 1.029 (1.001-1.035) Urine Protein Trace H (Negative) Urine Glucose (UA) Negative (Negative) Urine Ketones Negative (Negative) Urine Blood Negative (Negative) Urine Nitrite Negative (Negative) Urine Bilirubin Negative (Negative) Urine Urobilinogen 2.0 (<2.0) mg/dL Ur Leukocyte Esterase Negative (Negative) 12/27/21 Range/Units 08:52 WBC (3.8-10.6) k/uL RBC (4.30-5.90) m/uL Hgb (13.0-17.5) gm/dL Hct (39.0-53.0) % MCV (80.0-100.0) fL MCH (25.0-35.0) pg MCHC (31.0-37.0) g/dL RDW (11.5-15.5) % Plt Count (150-450) k/uL MPV Neutrophils % % Lymphocytes % % Monocytes % % Eosinophils % % Basophils % % Neutrophils # (1.3-7.7) k/uL Lymphocytes # (1.0-4.8) k/uL Monocytes # (0-1.0) k/uL Eosinophils # (0-0.7) k/uL Basophils # (0-0.2) k/uL PT (9.0-12.0) sec INR (<1.2) APTT (22.0-30.0) sec Sodium 140 (137-145) mmol/L Potassium 4.1 (3.5-5.1) mmol/L Chloride 103 (98-107) mmol/L Carbon Dioxide 27 (22-30) mmol/L Anion Gap 10 mmol/L BUN 15 (9-20) mg/dL Creatinine 0.91 (0.66-1.25) mg/dL Est GFR (CKD-EPI)AfAm >90 (>60 ml/min/1.73 sqM) Est GFR (CKD-EPI)NonAf >90 (>60 ml/min/1.73 sqM) Glucose 91 (74-99) mg/dL Calcium 8.7 (8.4-10.2) mg/dL Total Bilirubin 0.6 (0.2-1.3) mg/dL AST 24 (17-59) U/L ALT 25 (4-49) U/L Alkaline Phosphatase 48 (38-126) U/L Total Protein 6.9 (6.3-8.2) g/dL Albumin 4.3 (3.5-5.0) g/dL Amylase 46 (30-110) U/L Lipase 104 (23-300) U/L Urine Color Urine Appearance (Clear) Urine pH (5.0-8.0) Ur Specific [place] (1.001-1.035) Urine Protein (Negative) Urine Glucose (UA) (Negative) Urine Ketones (Negative) Urine Blood (Negative) Urine Nitrite (Negative) Urine Bilirubin (Negative) Urine Urobilinogen (<2.0) mg/dL Ur Leukocyte Esterase (Negative) Disposition Clinical Impression: Biliary colic Disposition: HOME SELF-CARE Condition: Good Instructions (If sedation given, give patient instructions): Biliary Colic (ED), Abdominal Pain (ED) Prescriptions: Famotidine 20 mg PO DAILY #10 tab Ondansetron Odt [Zofran Odt] 4 mg PO Q8HR PRN 2 Days #6 tab PRN Reason: Nausea Is patient prescribed a controlled substance at d/c from ED?: No Referrals: None,Stated [Primary Care Provider] - 1-2 days Leigh Wiggins MD [STAFF PHYSICIAN] - 1-2 days Time of Disposition: 11:00
[2021-12-27 09:04] LABS: Basophils # (A) 0.1 k/uL (0-0.2); Basophils % (A) 1 %; Eosinophils # (A) 0.5 k/uL (0-0.7); Eosinophils % (A) 5 %; HGB 16.6 gm/dL (13.0-17.5); Lymphocytes # (A) 2.4 k/uL (1.0-4.8); Lymphocytes % (A) 24 %; MCH 29.6 pg (25.0-35.0); MCHC 33.9 g/dL (31.0-37.0); MCV 87.4 fL (80.0-100.0); Mean Platelet Volume 9.2; Monocytes # (A) 0.5 k/uL (0-1.0); Monocytes % (A) 5 %; Neutrophils # (A) 6.2 k/uL (1.3-7.7); Neutrophils % (A) 63 %; Platelet Count 164 k/uL (150-450); RDW 13.1 % (11.5-15.5); WBC 9.8 k/uL (3.8-10.6)
[2021-12-27 09:09] LABS: Appearance,Urine Clear (Clear); Bilirubin,Urine Negative (Negative); Blood,Urine Negative (Negative); Color,Urine Yellow; Glucose,Urine (UA) Negative (Negative); Ketones,Urine Negative (Negative); Leukocyte Esterase,Urine Negative (Negative); Nitrite,Urine Negative (Negative); PH, Urine 5.5 (5.0-8.0); Protein,Urine Trace (Negative); Specific Gravity,Urine 1.029 (1.001-1.035)
[2021-12-27 09:17] LABS: ALT 25 U/L (4-49); AST 24 U/L (17-59); African American GFR (CKD) >90 (>60 ml/min/1.73 sqM); Albumin 4.3 g/dL (3.5-5.0); Alkaline Phosphatase 48 U/L (38-126); Amylase 46 U/L (30-110); Anion Gap 10 mmol/L; Blood Urea Nitrogen 15 mg/dL (9-20); Calcium 8.7 mg/dL (8.4-10.2); Carbon Dioxide 27 mmol/L (22-30); Chloride 103 mmol/L (98-107); Glucose 91 mg/dL (74-99); Lipase 104 U/L (23-300); Non-African American GFR(CKD) >90 (>60 ml/min/1.73 sqM); Potassium 4.1 mmol/L (3.5-5.1); Sodium 140 mmol/L (137-145); Total Bilirubin 0.6 mg/dL (0.2-1.3); Total Protein 6.9 g/dL (6.3-8.2)
[2021-12-27 09:22] LABS: Partial Thromboplastin Time 24.4 sec (22.0-30.0); Prothrombin Time 10.4 sec (9.0-12.0)
--- NOTE | 2021-12-27 09:24 | XR ---
EXAMINATION TYPE: XR KUB DATE OF EXAM: 12/27/2021 COMPARISON: None HISTORY: Abdomen pain right upper quadrant nausea vomiting TECHNIQUE: AP upright abdomen FINDINGS: Normal colonic bowel gas is present. No free air is evident. No suspicious air-fluid levels or differential air-fluid levels are present. Psoas margins are normal. No organomegaly is evident. No suspicious calcifications. No mass effect. IMPRESSION: 1. No acute abnormality
--- NOTE | 2021-12-27 10:30 | US ---
EXAMINATION TYPE: US gallbladder DATE OF EXAM: 12/27/2021 COMPARISON: NONE CLINICAL HISTORY: RUQ pain, nausea. abd pain, N/V x 1 year TECHNIQUE: Multiple sonographic images of the right upper quadrant are obtained. FINDINGS: EXAM MEASUREMENTS: Liver Length: 16.1 cm Gallbladder Wall: 0.2 cm CBD: 0.6 cm Right Kidney: 10.2 x 5.5 x 5.7 cm MEDICATION MANAGER NOTES:overlying bowel gas limits views Pancreas: obscured by bowel gas Liver: wnl Gallbladder: 2.1cm fundal stones Evidence for sonographic Chung's sign: yes CBD: wnl Right Kidney: wnl IMPRESSION: 1. Cholelithiasis 2. Some limitation due to bowel gas
[2021-12-27] MEDS ORDERED: ACET/COD 300 MG/30 MG STARTER PACK 6 TAB BTL PO STA (11:05)
[2021-12-27 11:40] VITALS: BP 120/72; PULSE 52; RESP 18; TEMP 97.7
== END 2021-12-27 11:34 | disposition home or self-care (01) ==
LOC: EC 08:17
DX: K80.50 Calculus of bile duct without cholangitis or cholecystitis without obstruction (principal); F17.200 Nicotine dependence, unspecified, uncomplicated; F12.90 Cannabis use, unspecified, uncomplicated
CPT/HCPCS: 36415; 80053; 82150; 83690; 85025; 85610; 85730; 81003; 74018; 76705; 99284; 96374; 96375 ×2; 96361; J2270; J2405; C9113

== ENCOUNTER 2022-02-09 09:36 | Day surgery (SDC) | payer OTHER ==
[2022-02-08 09:26] VITALS: BMI 36.5
--- NOTE | 2022-02-09 06:22 | P.GSHP ---
History of Present Illness H&P Date: 02/09/22 CHIEF COMPLAINT: Cholecystitis HISTORY OF PRESENT ILLNESS: The patient is a 26-year-old male who presents with history of epigastric including right upper quadrant abdominal pain. He underwent diagnostic studies for the gallbladder. Separately his clinical picture was consistent with cholecystitis. Now he presents for surgical intervention. PAST MEDICAL HISTORY: Please see list PAST SURGICAL HISTORY: Please see list MEDICATIONS: Please see list ALLERGIES: Denies. SOCIAL HISTORY: No illicit drug use or recent tobacco use FAMILY HISTORY: Pertinent for gallbladder disease REVIEW OF ORGAN SYSTEMS: CONSTITUTIONAL: No reports of fevers or chills. HEENT: Denies any troubles with the vision or hearing. ENDOCRINE: No reports of hypothyroidism. No diabetes. RESPIRATORY: No recent pneumonias. CARDIOVASCULAR: Denies chest pain or palpitations GI: No blood in stools or constipation. MUSCULOSKELETAL: Has occasional joint pain including back pain. NEURO: No seizure disorders or headaches. No recent stroke. PSYCH: No depression or suicidal ideation. HEMATOLOGIC: No personal or family history of DVTs or pulmonary emboli. PHYSICAL EXAM: VITAL SIGNS: Afebrile vital signs stable GENERAL: Well-developed pleasant male in no acute distress. HEENT: No scleral icterus. Extraocular movements grossly intact. Moist buccal mucosa. NECK: Supple without lymphadenopathy. CHEST: Unlabored respirations. Equal bilateral excursions. CARDIOVASCULAR: Regular rate regular rhythm rhythm. Distal 2+ pulses. ABDOMEN: Soft, nondistended. Tender along the epigastrium and right upper quadrant. MUSCULOSKELETAL: No clubbing, cyanosis, or edema. NEURO : No focal or lateralizing signs. Cranial nerves II-12 within normal limits. PSYCH: Alert and oriented to person, place and time. SKIN: Well perfused. Good skin turgor. ASSESSMENT: 1. Epigastric and right upper quadrant abdominal pain 2. Chronic cholecystitis 3. Tobacco use 4. Morbid obesity due to excess calories, BMI 36.5 PLAN: 1. Will need a robotic cholecystectomy possible open. Benefits and risks were described. 2. Heparin for DVT prophylaxis 5000 units. 3. Antibiotic prophylaxis. 4. He is elevated risk due to tobacco use and obesity Past Medical History Past Medical History: No Reported History Additional Past Medical History / Comment(s): [place] Nov 2021,covid Feb 2021, at age 20 was having chest pain was given nitro had stress test was told by Dr burt heart muscle. History of Any Multi-Drug Resistant Organisms: None Reported Past Surgical History: No Surgical Hx Reported Past Anesthesia/Blood Transfusion Reactions: No Reported Reaction Additional Past Anesthesia/Blood Transfusion Reaction / Comment(s): never has had general anesthesia, no hx blood transfusion Smoking Status: Current every day smoker - Past Family History Father Family Medical History: Coronary Artery Disease (CAD) Additional Family Medical History / Comment(s): CABG Mother Family Medical History: Pulmonary Embolus Additional Family Medical History / Comment(s): PEs after francesca fx ankles Medications and Allergies Home Medications Medication Instructions Recorded Confirmed Type Acetaminophen Tab [Tylenol Tab] 1,000 mg PO Q6H PRN 12/27/21 02/08/22 History Dicyclomine [Bentyl] 20 mg PO QID PRN 12/27/21 02/08/22 History Ondansetron Odt [Zofran Odt] 4 mg PO Q8HR PRN 2 Days #6 tab 12/27/21 02/08/22 Rx Ibuprofen 800 mg PO Q8H PRN 02/08/22 02/08/22 History Allergies Allergy/AdvReac Type Severity Reaction Status Date / Time hand soaps Allergy redness Uncoded 02/08/22 09:10 and skin irritaton heads and shoulders shampoo Allergy redness Uncoded 02/08/22 09:10 and skin irritation
[~2022-02-09 09:36] MED LIST: ACETAMINOPHEN TAB 500 MG TAB PO STA; DEXAMETHASONE SOD PHOSPHATE 4 MG/ML 1 ML VIAL IV ONE; GABAPENTIN 300 MG CAP PO STA; HEPARIN SODIUM,PORCINE/PF 5,000 UNIT/0.5 ML SYRINGE SQ PRN; LACTATED RINGERS 1,000 ML IV SCH; LIDOCAINE 1% (10MG/ML) FOR IV START INTRADERMA PRN; MELOXICAM 7.5 MG TAB PO STA; ONDANSETRON 4 MG/2 ML VIAL IVP ONE; SCOPOLAMINE 1 MG/72 HR PATCH TRANSDERM ONE
[2022-02-09 10:00] VITALS: TEMP 97.3
[2022-02-09 10:14] LABS: Basophils # (A) 0.1 k/uL (0-0.2); Basophils % (A) 1 %; Eosinophils # (A) 0.5 k/uL (0-0.7); Eosinophils % (A) 6 %; HCT 50.6 % (39.0-53.0); HGB 17.9 gm/dL (13.0-17.5); Lymphocytes # (A) 2.5 k/uL (1.0-4.8); Lymphocytes % (A) 35 %; MCH 29.9 pg (25.0-35.0); MCHC 35.4 g/dL (31.0-37.0); MCV 84.3 fL (80.0-100.0); Mean Platelet Volume 8.3; Monocytes # (A) 0.5 k/uL (0-1.0); Monocytes % (A) 6 %; Neutrophils # (A) 3.5 k/uL (1.3-7.7); Neutrophils % (A) 48 %; Platelet Count 185 k/uL (150-450); RDW 12.4 % (11.5-15.5); WBC 7.2 k/uL (3.8-10.6)
[2022-02-09 10:24] LABS: ALT 31 U/L (4-49); African American GFR (CKD) >90 (>60 ml/min/1.73 sqM); Albumin 4.7 g/dL (3.5-5.0); Anion Gap 9 mmol/L; Blood Urea Nitrogen 9 mg/dL (9-20); Carbon Dioxide 27 mmol/L (22-30); Chloride 106 mmol/L (98-107); Glucose 94 mg/dL (74-99); Non-African American GFR(CKD) >90 (>60 ml/min/1.73 sqM); Sodium 142 mmol/L (137-145); Total Bilirubin 1.5 mg/dL (0.2-1.3); Total Protein 7.9 g/dL (6.3-8.2)
[2022-02-09 10:25] LABS: AST 32 U/L (17-59); Alkaline Phosphatase 45 U/L (38-126); Potassium 4.2 mmol/L (3.5-5.1)
[2022-02-09] MEDS ORDERED: MIDAZOLAM 2 MG/2 ML VIAL ONE (11:21)
[2022-02-09] MEDS ORDERED: GLYCOPYRROLATE 0.2 MG/ML 2 ML VIAL ONE (11:21)
[2022-02-09] MEDS ORDERED: SUCCINYLCHOLINE CHLORIDE 200 MG/10 ML VIAL IV ONE (11:21)
[2022-02-09] MEDS ORDERED: NEOSTIGMINE 1 MG/ML 10 ML VIAL ONE (11:21)
[2022-02-09] MEDS ORDERED: HYDROmorphone (PF) 1 MG/ML ONE (11:21)
[2022-02-09] MEDS ORDERED: INDOCYANINE GREEN 25 MG VIAL IV ONE (11:21)
[2022-02-09] MEDS ORDERED: fentaNYL (PF) 50 MCG/ML 2 ML AMP ONE (11:21)
[2022-02-09] MEDS ORDERED: PROPOFOL 10 MG/ML 20 ML VIAL IV ONE (11:21)
[2022-02-09] MEDS ORDERED: LIDOCAINE 2% INJ 20 MG/ML (2 ML VIAL) ONE (11:21)
[2022-02-09] MEDS ORDERED: ROCURONIUM 10 MG/ML (5 ML VIAL) IV ONE (11:21)
[2022-02-09] MEDS ORDERED: INDOCYANINE GREEN 25 MG VIAL IV STA (11:52)
[2022-02-09] MEDS ORDERED: BUPIVACAIN-EPI 0.25%-1:200,000 30 ML VIAL SQ ONE (11:59)
[2022-02-09] MEDS ORDERED: LACTATED RINGERS 1,000 ML IV ONE (12:00)
[2022-02-09] MEDS: HYDROmorphone 0.5 MG/0.5 ML SYRINGE IVP PRN ×2 (13:40→13:59)
[2022-02-09 15:17] VITALS: BP 127/76; PULSE 64; RESP 18
--- NOTE | 2022-02-21 10:30 | P.OP ---
Date of Procedure: 02/09/22 Description of Procedure: SURGEON: LEIGH WIGGINS MD PREOPERATIVE DIAGNOSES: 1. Symptomatic gallstone 2. Right upper quadrant abdominal pain 3. ADD with ADHD 4. Chronic tobacco abuse disorder 5. Depressive disorder 6. Morbid obesity due to excess calories, BMI 37.6 POSTOPERATIVE DIAGNOSES: 1. Symptomatic gallstone 2. Right upper quadrant abdominal pain 3. ADD with ADHD 4. Chronic tobacco abuse disorder 5. Depressive disorder 6. Morbid obesity due to excess calories, BMI 37.6 7. Chronic cholecystitis 8. Peritoneal adhesions, right upper quadrant OPERATION: 1. Robotic-assisted da Senait Xi laparoscopic lysis of adhesions 2. Robotic-assisted da Senait Xi laparoscopic cholecystectomy, multiport with FIREFLY ESTIMATED BLOOD LOSS: 5 mL. SPECIMENS REMOVED: Gallbladder. COMPLICATIONS: None. OPERATIVE FINDINGS: 1. Moderate scarring over entire gallbladder with peritoneal adhesions, pericholecystic with features of chronic cholecystitis 2. Large 2-3 cm gallstone palpated 3. Infundibulum adherent posterior to common bile duct carefully dissected free without injury 4. Gallbladder retrieved via the left mid upper quadrant port with fascial defect less than 12 mm 5. Dense adhesions with lysis of adhesions performed INDICATIONS: The patient is a 26-year-old male who presents with symptomatic gallstones. Robotic assisted laparoscopic approach was described. Benefits and risks of the procedure including but not limited to bleeding, infection, injury to the biliary tree was described. Informed consent was obtained. DESCRIPTION OF PROCEDURE: Patient was brought to the operating room, placed in supine position. After general induction, the abdomen had been prepped and draped in standard sterile fashion. The robotic da Senait XI system was primed. After a timeout protocol was performed, the patient had been prepped and draped in standard sterile fashion. The patient was injected with indocyanine green. A 5 mm 0 degrees laparoscopic trocar entry was performed along the left upper quadrant. The abdomen insufflated to 15 mmHg pressure which was tolerated well. Diagnostic laparoscopy demonstrated no injury to bowel viscera or mesentery. The liver surface was unremarkable. Next, two 8 mm robotic ports were placed along the right upper abdomen. The camera 8-mm port was maintained along the epigastrium. Another 8 mm port was placed along the left upper abdominal wall after exchanging the 5 mm port. Please note that the ports were placed at least 10 to 15 cm away from the target anatomy of the gallbladder. The robot was docked along the left lateral abdomen. The patient was repositioned in reverse Trendelenburg position. Using a grasper for arm 3, a grasper for arm 4, including hook cautery for arm 1, the robotic system was docked and primed as described. Instruments were interchanged by the teacher assistant including hook cautery, Bovie cautery and clip appliers. I had sat at the console. The gallbladder was scarred with peritoneal adhesions. Lysis of adhesions was performed to free the gallbladder from the surrounding tissues. Next attention was brought to the infundibulum and cystic structures. The infundibulum and cystic duct were dissected free from surrounding tissues. The cystic duct was isolated. FIREFLY was used to identify the cystic artery and cystic structures. A critical view of safety was obtained. Large PLASTIC clips were used throughout the entire case. Using a clip sprinkler tender, 2 clips were placed at the junction of the infundibulum and cystic duct. The cystic duct was divided between clips. Next, the cystic artery was similarly clipped and cauterized. Electro-Bovie cautery was used to remove the gallbladder from the hepatic fossa. Hemostasis was checked and found to be adequate. The robot was undocked. I re-scrubbed into the case. Using a 10 mm Endo Catch bag via the left upper quadrant incision, the specimen was removed from the abdominal cavity. All pneumoperitoneum instruments were evacuated from the abdominal cavity. The incisions were reapproximated using 4-0 Monocryl in an interrupted subcuticular fashion. Fascial defects were less than 8 mm in size. Please note along the trocar sites, local anesthetic was placed as a field block prior to insertion of all instruments. Liquid glue was applied to the skin. At the end of the procedure needle, sponge, and instrument count had been verified correct by the surgical supply assistant. The patient was transferred to postanesthesia care unit in stable condition. Intraoperative films were shared with the patient's family. Plan - Discharge Summary Discharge Rx Participant: Yes New Discharge Prescriptions: New Simethicone [Gas-X] 125 mg PO AC-TID PRN #20 capsule PRN Reason: Pain Ibuprofen [Motrin] 600 mg PO Q8HR PRN #30 tab PRN Reason: Pain Acetaminophen Tab [Tylenol Tab] 1,000 mg PO Q6HR PRN #30 tablet PRN Reason: Pain Continue Ondansetron Odt [Zofran ODT] 4 mg PO Q8HR PRN 2 Days #6 tab PRN Reason: Nausea Discontinued Dicyclomine [Bentyl] 20 mg PO QID PRN PRN Reason: ibs Acetaminophen Tab [Tylenol Tab] 1,000 mg PO Q6H PRN PRN Reason: Fever And/ Or Pain Ibuprofen 800 mg PO Q8H PRN PRN Reason: Pain Discharge Medication List Ondansetron Odt [Zofran ODT] 4 mg PO Q8HR PRN 2 Days #6 tab 12/27/21 [Rx] Acetaminophen Tab [Tylenol Tab] 1,000 mg PO Q6HR PRN #30 tablet 02/09/22 [Rx] Ibuprofen [Motrin] 600 mg PO Q8HR PRN #30 tab 02/09/22 [Rx] Simethicone [Gas-X] 125 mg PO AC-TID PRN #20 capsule 02/09/22 [Rx] Follow up Appointment(s)/Referral(s): Leigh Wiggins MD [STAFF PHYSICIAN] - 02/13/22 (Telehealth) Patient Instructions/Handouts: *[facility] - Laparoscopic Cholecystectomy Discharge Instructions, *[facility] - Managing Your Pain After Surgery Without Opioids, *[facility] - (Anesthesia) Discharge Instructions Outpatient Surgery, Low Fat Diet (DC) Activity/Diet/Wound Care/Special Instructions: Recommend low-fat diet for the next 2 days. No lifting over 10 pounds in 2 weeks until Feb 23. May shower. No bath tub soaks for two weeks until Feb 23 Diet as tolerated. Use Tylenol, simethicone and ibuprofen or Aleve scheduled for the next 24-48 hours for best pain relief. Use ice along incisions for today to prevent swelling. Discharge Disposition: HOME SELF-CARE
== END 2022-02-09 15:15 | disposition home or self-care (01) ==
LOC: OR 09:36
PROVIDERS: ATTEND Surgery Plastic and Reconstructive Surgery
DX: K80.10 Calculus of gallbladder with chronic cholecystitis without obstruction (principal); F17.200 Nicotine dependence, unspecified, uncomplicated; E66.01 Morbid (severe) obesity due to excess calories; Z68.36 Body mass index [BMI] 36.0-36.9, adult; Z86.16 Personal history of COVID-19; Z82.49 Family history of ischemic heart disease and other diseases of the circulatory system; Z83.6 Family history of other diseases of the respiratory system; Z83.79 Family history of other diseases of the digestive system; Z79.899 Other long term (current) drug therapy
CPT/HCPCS: 88304; 80053; 85025; 47563; J2250; J0330; J1100; J2710; J0690; J2405; J3010; J1170 ×2; J2704; J1644; J2001